=== PATIENT | female | born 1995 | race Two or more races ===

== ENCOUNTER 2021-11-17 10:56 | Emergency (ER) | payer MEDICAID, OTHER ==
[~2021-11-17] VITALS: Ht 157.5 cm; Wt 113.4 kg
[2021-11-17 10:58] VITALS: BP 120/70
[2021-11-17 11:25] LABS: Urine WBC None Seen /hpf (0 - 5)
[2021-11-17 12:13] LABS: Urine Bacteria NONE SEEN /hpf (None Seen); Urine Blood 1+ /uL (Negative); Urine Mucus FEW (None Seen)
[2021-11-17 14:07] LABS: Basophils # (auto) 0 10 ^3/uL (0-0.2); Basophils % (auto) 0.3 % (0.0-2.0); Eosinophils # (auto) 0.2 10 ^3/uL (0-0.8); Eosinophils % (auto) 1.4 % (0.0-7.0); Hematocrit 37.6 % (36.0-46.0); Hemoglobin 12.3 g/dL (12.2-16.2); Lymphocytes # (auto) 3.3 10 ^3/uL (0.4-5.4); Lymphocytes % (auto) 29.2 % (10.0-50.0); Mean Corpuscular Hgb Conc. 32.8 g/dL (32.0-36.0); Mean Corpuscular Volume 82.5 fL (80.0-100.0); Monocytes # (auto) 0.5 10 ^3/uL (0-1.3); Monocytes % (auto) 4.6 % (0.0-12.0); Neutrophils # (auto) 7.3 10 ^3/uL (1.6-8.6); Neutrophils % (auto) 64.5 % (37.0-80.0); Nucleated Red Blood Cells % 0.2 %; Red Blood Cells 4.55 10^6/uL (4.0-5.20); Red Cell Distribution Width 13.9 % (11.8-14.3); White Blood Cell 11.3 10^3/uL (4.4-10.8)
[2021-11-17 14:17] LABS: Albumin 3.2 g/dL (3.4-5.0); Calcium 8.6 mg/dL (8.5-10.1); Potassium 3.6 mmol/L (3.5-5.1)
[2021-11-17 14:19] LABS: Bilirubin, Total 0.3 mg/dL (0.2-1.0); Total Protein 7.5 g/dL (6.4-8.2)
== END 2021-11-17 15:22 | disposition home or self-care (01) ==
LOC: ER 10:56
DX: O20.0 Threatened abortion (principal); Z3A.01 Less than 8 weeks gestation of pregnancy
CPT/HCPCS: 36415; 76801; 76817; 80053; 81001; 84702; 85025

== ENCOUNTER 2021-12-07 23:11 | Emergency (ER) | payer MEDICAID ==
[~2021-12-07] VITALS: Ht 157.5 cm; Wt 113.4 kg
[2021-12-07] MEDS ORDERED: SODIUM CHLORIDE 0.9% 1,000 ML IV ONE (23:45)
[2021-12-07] MEDS ORDERED: ACETAMINOPHEN 500 MG TAB PO ONE (23:45)
[2021-12-08 01:45] VITALS: BP 106/66
== END 2021-12-08 01:50 | disposition home or self-care (01) ==
LOC: ER 23:16
DX: O26.891 Other specified pregnancy related conditions, first trimester (principal); J06.9 Acute upper respiratory infection, unspecified; Z3A.09 9 weeks gestation of pregnancy; Z20.822 Contact with and (suspected) exposure to COVID-19
CPT/HCPCS: 36415; 87426; 87804; 96360; 99283; J7030

== ENCOUNTER 2022-03-10 00:19 | Observation (INO) | payer MEDICAID ==
[~2022-03-10] VITALS: Ht 157.5 cm; Wt 117.5 kg
[2022-03-10] MEDS ORDERED: LACTATED RINGER'S 1,000 ML IV ONE (01:15)
[2022-03-10] MEDS ORDERED: LACTATED RINGER'S 1,000 ML IV SCH (01:15)
[2022-03-10 01:22] LABS: Urine Bacteria FEW /hpf (None Seen); Urine Blood 3+ /uL (Negative); Urine Specific Gravity 1.007 (1.001-1.035); Urine WBC 1 /hpf (0 - 5)
== END 2022-03-10 02:29 | disposition home or self-care (01) ==
LOC: LDRP 00:19
PROVIDERS: ADMIT Obstetrics & Gynecology; ATTEND Obstetrics & Gynecology
DX: O46.92 Antepartum hemorrhage, unspecified, second trimester (principal); O26.892 Other specified pregnancy related conditions, second trimester; R10.32 Left lower quadrant pain; Z3A.22 22 weeks gestation of pregnancy
CPT/HCPCS: 59025; 76815; 81001; 81002; 94760; 96360; 96361; G0378

== ENCOUNTER → 2022-03-10 | Emergency (ER) | payer MEDICAID | END | disposition left against medical advice (07) | LOC: EDUNIT# 00:02 → ER 00:14 → EDBD 00:14 | DX: O20.8 Other hemorrhage in early pregnancy (principal); Z3A.22 22 weeks gestation of pregnancy; Z53.21 Procedure and treatment not carried out due to patient leaving prior to being seen by health care provider ==